=== PATIENT | female | born 1985 | race Caucasian/White ===

== ENCOUNTER 2017-11-22 16:28 | Emergency (ER) | payer OTHER ==
[~2017-11-22] VITALS: Ht 152.4 cm; Wt 63.5 kg
== END 2017-11-22 20:07 | disposition home or self-care (01) ==
LOC: ER 16:28
DX: R51 Headache (principal)

== ENCOUNTER 2018-10-05 14:49 | Emergency (ER) | payer OTHER ==
[~2018-10-05] VITALS: Ht 152.4 cm; Wt 63.5 kg
[2018-10-05] MEDS ORDERED: [UNRECOGNIZED DRUG - REMARK] (15:06)
[2018-10-05] MEDS ORDERED: [UNRECOGNIZED DRUG - REMARK] (15:06)
[2018-10-05] MEDS ORDERED: BENZONATATE200 M1 (15:07)
[2018-10-05] MEDS ORDERED: ZITHROMAX TRI-500 MG PO (20:39)
== END 2018-10-05 20:57 | disposition home or self-care (01) ==
LOC: ER 14:49
DX: J06.9 Acute upper respiratory infection, unspecified (principal); J04.0 Acute laryngitis